=== PATIENT | male | born 1985 | race Two or more races ===

== ENCOUNTER 2023-07-03 03:20 | Emergency (ER) | payer BC, OTHER ==
[~2023-07-03] VITALS: Ht 177.8 cm; Wt 84.0 kg
== END 2023-07-03 06:13 | disposition home or self-care (01) ==
LOC: ER 03:20 → EDUNIT# 03:20 → ER 06:13
DX: S09.8XXA Other specified injuries of head, initial encounter (principal); W18.39XA Other fall on same level, initial encounter; Y93.89 Activity, other specified; Y92.89 Other specified places as the place of occurrence of the external cause; Y99.8 Other external cause status
CPT/HCPCS: 70450; 70486; 72125